=== PATIENT | female | born 1975 | race Two or more races ===

== ENCOUNTER 2018-10-17 15:30 | Emergency (ER) | payer MEDICAID ==
[~2018-10-17] VITALS: Ht 175.3 cm; Wt 102.5 kg
[2018-10-17 16:22] VITALS: BP 132/58
[2018-10-17] MEDS ORDERED: KETOROLAC TROMETH 60MG/2ML VIAL IM ONE (16:45)
== END 2018-10-17 18:03 | disposition home or self-care (01) ==
LOC: ER 15:35
DX: M79.605 Pain in left leg (principal); M79.89 Other specified soft tissue disorders; F17.210 Nicotine dependence, cigarettes, uncomplicated
CPT/HCPCS: 73610; 96372; 99283; J1885

== ENCOUNTER → 2022-11-12 | Outpatient (CLI) | payer MEDICAID | END | disposition home or self-care (01) | LOC: LAB 07:00 | PROVIDERS: ATTEND Podiatrist | DX: M67.472 Ganglion, left ankle and foot (principal) | CPT/HCPCS: 36415; 82565; 84520 ==

== ENCOUNTER 2023-11-09 07:01 | Emergency (ER) | payer MEDICAID ==
[~2023-11-09] VITALS: Ht 160 cm; Wt 94.0 kg
[2023-11-09 08:18] VITALS: BP 154/98; TEMP 98
[2023-11-09] MEDS ORDERED: ONDANSETRON ODT 4 MG TAB PO ONE (09:00)
[2023-11-09 09:08] LABS: Urine WBC None Seen /hpf (0 - 5)
[2023-11-09 09:22] LABS: Basophils # (auto) 0 10 ^3/uL (0-0.2); Basophils % (auto) 0.3 % (0.0-2.0); Eosinophils # (auto) 0 10 ^3/uL (0-0.8); Eosinophils % (auto) 0.2 % (0.0-7.0); Hematocrit 43.5 % (36.0-46.0); Hemoglobin 14.2 g/dL (12.2-16.2); Lymphocytes # (auto) 1.2 10 ^3/uL (0.4-5.4); Lymphocytes % (auto) 8.3 % (10.0-50.0); Mean Corpuscular Hemoglobin 28.8 pg (28.0-32.0); Mean Corpuscular Hgb Conc. 32.7 g/dL (32.0-36.0); Mean Corpuscular Volume 88.2 fL (80.0-100.0); Monocytes # (auto) 0.5 10 ^3/uL (0-1.3); Monocytes % (auto) 3.1 % (0.0-12.0); Neutrophils % (auto) 88.1 % (37.0-80.0); Red Blood Cells 4.93 10^6/uL (4.0-5.20); White Blood Cell 14.8 10^3/uL (4.4-10.8)
[2023-11-09 09:27] LABS: Urine Amorphous Crystal FEW /hpf (None Seen); Urine Bacteria NONE SEEN /hpf (None Seen); Urine Blood Negative /uL (Negative); Urine Clarity CLOUDY (Clear); Urine Color Yellow (Yellow); Urine Mucus FEW (None Seen); Urine Protein, UAD 1+ (Negative); Urine Specific Gravity 1.033 (1.001-1.035); Urine Urobilinogen Normal (Negative)
[2023-11-09] MEDS ORDERED: HYOSCYAMINE SULF 0.125 MG ODT TAB PO ONE (10:00)
[2023-11-09 10:02] LABS: Alanine Aminotransferase 32 U/L (7-40); Albumin 4.9 g/dL (3.2-4.8); Alkaline Phosphatase 80 U/L (46-116); Anion Gap 8 (5-15); Aspartate Aminotransferase 23 U/L (13-40); BUN/Creatinine Ratio 11.9 (10.0-20.0); Blood Urea Nitrogen 8 mg/dL (9-23); Calcium 10.4 mg/dL (8.5-10.1); Carbon Dioxide 27 mmol/L (20-30); Chloride 103 mmol/L (98-107); Glucose 98 mg/dL (74-106); Potassium 4.4 mmol/L (3.5-5.1); Sodium 138 mmol/L (136-145)
[2023-11-09 10:03] LABS: Bilirubin, Total 0.5 mg/dL (0.2-1.0); Total Protein 7.9 g/dL (5.7-8.2)
[2023-11-09 10:33] VITALS: PULSE 100; RESP 19; O2SAT 98
[2023-11-09] MEDS ORDERED: ZOFR4T PO (11:40)
[2023-11-09] MEDS ORDERED: DOCU-94 PO (11:40)
[2023-11-09] MEDS ORDERED: HYOS0.1250 PO (11:40)
== END 2023-11-09 11:58 | disposition home or self-care (01) ==
LOC: ER 07:01
DX: R10.9 Unspecified abdominal pain (principal); K59.00 Constipation, unspecified; R51.9 Headache, unspecified; F17.210 Nicotine dependence, cigarettes, uncomplicated; Z79.899 Other long term (current) drug therapy
CPT/HCPCS: 36415; 74018; 80053; 81001; 85025; 99284; Q0162